=== PATIENT | female | born 1995 | race Caucasian/White ===

== ENCOUNTER 2024-01-16 03:26 | Emergency (ER) | payer OTHER ==
[~2024-01-16] VITALS: Ht 162.6 cm; Wt 72.6 kg
[2024-01-16 03:34] VITALS: BP 135/91; PULSE 89; RESP 14; TEMP 97.8; O2SAT 98
[2024-01-16 03:37] VITALS: BP 135/91; PULSE 89; RESP 14; TEMP 97.8; O2SAT 98
== END 2024-01-16 03:58 ==
LOC: MED 03:26
DX: Z02.89 Encounter for other administrative examinations (principal); I10 Essential (primary) hypertension; V49.88XA Car occupant (driver) (passenger) injured in other specified transport accidents, initial encounter; Y93.89 Activity, other specified; Y92.89 Other specified places as the place of occurrence of the external cause; Y99.8 Other external cause status
CPT/HCPCS: 99283